=== PATIENT | male | born 1975 | race Caucasian/White ===

== ENCOUNTER 2019-02-26 23:02 | Emergency (ER) | payer SELFPAY ==
[~2019-02-26] VITALS: Ht 175.3 cm; Wt 79.4 kg
[2019-02-26] MEDS ORDERED: MORPHINE SULFATE 4 MG/ML CPJ (NOT FOR IM USE) IV ONE (23:30)
[2019-02-27] MEDS ORDERED: LIDOCAINE HCL 1% 20ML VIAL (Pyxis) INJ INFIL ONE
[2019-02-27 00:54] VITALS: BP 126/82
== END 2019-02-27 00:55 | disposition home or self-care (01) ==
LOC: ER 23:02
DX: S63.065A Dislocation of metacarpal (bone), proximal end of left hand, initial encounter (principal); S60.512A Abrasion of left hand, initial encounter; F12.10 Cannabis abuse, uncomplicated; W22.8XXA Striking against or struck by other objects, initial encounter; Y93.89 Activity, other specified; Y92.015 Private garage of single-family (private) house as the place of occurrence of the external cause
CPT/HCPCS: 26700; 73130; 96374; 99284; J2270; J3490; Z7610